=== PATIENT | male | born 1990 | race African-American/Black ===

== ENCOUNTER 2016-10-18 18:35 | Inpatient (IN) | payer OTHER ==
--- NOTE | ~2016-10-18 | HP ---
Unit #: [id number] #: [id number] Patient: ANNA JOLLY [id number] [facility] [address] [place] [address] [id number] MR#: [id number] NAME: ANNA JOLLY ROOM: [facility] Age: 26 Sex: M Admission Date: 10/18/2016 : 1990 Attending Physician: Quincy Painting M.D. Admitting Physician: Quincy Painting M.D. Primary Care Physician: Primary Care Physician No HISTORY AND PHYSICAL HISTORY OF PRESENT ILLNESS Anna is a 26 year old admitted to [address] [place] [address] with depression after verbalizing wanting to hurt himself. He has been noncompliant with psychiatric medications for quite some time. He is a poor historian and is uncooperative so his history is taken from his chart and exam is limited. PAST MEDICAL HISTORY Nothing significant. PAST SURGICAL HISTORY Nothing known. ALLERGIES No known drug allergies. SOCIAL HISTORY It is unclear if he smokes, drinks alcohol or uses illicit drugs. FAMILY HISTORY Medically not known. REVIEW OF SYSTEMS He refuses to answer any questions. There are no reports of nausea, vomiting or diarrhea. He has had no cough or increased temperature. CURRENT MEDICATIONS 1. Milk of Magnesia p.r.n. 2. Maalox p.r.n. 3. Tylenol p.r.n. 4. Nicotine patch 14 mg q day PHYSICAL EXAMINATION GENERAL: Alert, well-nourished, in no apparent distress. VITAL SIGNS: Blood pressure 104/88, heart rate 84, respirations 16, temperature 98.6. WEIGHT: 160 pounds. HEIGHT: 6'1". SKIN: Patient refuses. HEENT: Patient refuses. NECK: Patient refuses. HEART: Rate and rhythm is regular. LUNGS: Patient refuses. Unit #: [id number] #: [id number] Patient: ANNA JOLLY ABDOMEN: Patient refuses. : Patient refuses. EXTREMITIES: Moves all extremities without focal deficit. Hand pre owned sales consultant is equal. Gait is normal. NEUROLOGICAL: Patient refuses. IMPRESSION Psychiatric admission RECOMMENDATIONS PSYCHIATRIC: Per psychiatrist. MEDICAL: I see no contraindications to participating in facility's activities. MEDICAL PROGNOSIS Good. MEDICAL CONDITION Stable. Dictated by... Tracie Miller P.A.-C. for Rikki Ponce/segun TD: 10/20/2016 07:14 JOB #: [id number] HISTORY AND PHYSICAL Page 1 of 1 X Tracie Miller HISTORY AND PHYSICAL
--- NOTE | ~2016-10-18 | PA ---
Unit #: [id number] #: [id number] Patient: ANNA JOLLY [id number] [place] [address] [id number] MR#: [id number] NAME: ANNA JOLLY ROOM: [facility] Age: 26 Sex: M Admission Date: 10/18/2016 : 1990 Date of Assessment: 10/19/2016 Attending Physician: Quincy Painting M.D. Admitting Physician: Quincy Painting M.D. Primary Care Physician: Primary Care Physician No PSYCHIATRIC ASSESSMENT IDENTIFYING INFORMATION The patient is a 26-year-old single male who is admitted voicing suicidal ideation. CHIEF COMPLAINT None given INFORMANT Chart, patient could not aroused for interview. HISTORY OF PRESENT ILLNESS The patient is a 26-year-old single male who carries a diagnosis of a bipolar spectrum disorder. He was admitted after he had voiced positive suicidal ideation. He had been at [facility] but apparently eloped from that facility. Reportedly the patient has been on Seroquel and lithium in the past but has been off medications for some time. The patient is homeless and states that he has been "living in a [place]. The patient had required p.r.n. medication on admission to the hospital yesterday and is currently very groggy and cannot be aroused for interview. PAST PSYCHIATRIC HISTORY As noted previously has been diagnosed with bipolar disorder and has been prescribed Seroquel and lithium but has been noncompliant with those medications for approximately two months per report of the chart. PAST MEDICAL HISTORY Noncontributory. MEDICATIONS [place] and Seroquel ALLERGIES None reported. FAMILY HISTORY not obtained. SOCIAL HISTORY As noted previously. The patient is reportedly homeless. Further social history cannot be obtained at this time. MENTAL STATUS EXAMINATION Unit #: [id number] #: [id number] Patient: ANNA JOLLY At this time reveals the patient to be a well-developed, well-nourished and disheveled male, appearing his stated age. He is sleeping soundly and cannot be aroused for further interview. CHIEF COMPLAINT none given. INFORMANT The patient, reliability is fair. ASSETS AND LIABILITIES ASSETS: To be assessed. LIABILITIES: Lack of resources. Homelessness. DIAGNOSTIC IMPRESSION Bipolar disorder depressed phase. TREATMENT PLAN The patient remains hospitalized for safety and stabilization. Once the patient is more capable of participating in interview we will consider reinitiation of his previously prescribed medications. Suicidal precautions are in place. ESTIMATE LENGTH IN THE HOSPITAL Five to seven days with followup to take place through the auspices of community mental health resources. Dictated by... Quincy Painting M.D. JOSH/segun TD: 10/20/2016 04:45 JOB #: [id number] PSYCHIATRIC ASSESSMENT Page 1 of 1 X Quincy Painting MD X PSYCHIATRIC ASSESSMENT
--- NOTE | ~2016-10-18 | PN ---
Unit #: [id number] #: [id number] Patient: ANNA JOLLY [id number] [facility] [address] [place] [address] [id number] MR#: [id number] NAME: ANNA JOLLY ROOM: [facility] Age: 26 Sex: M Admission Date: 10/18/2016 : 1990 Attending Physician: Quincy Painting M.D. Admitting Physician: Quincy Painting M.D. Primary Care Physician: Primary Care Physician Estella MELGAR PROGRESS NOTES DATE 10/20/2016 DISCUSSION The patient is abed resting comfortably with the blanket over his head. Multiple attempts to arouse the patient are less unsuccessful. Staff reports no management issues (1) __ the patient has remained for the most part seclusive to room. Dictated by... Quincy Painting M.D. CB/jamia TD: 10/20/2016 13:14 JOB #: [id number] [facility] PROGRESS NOTES Page 1 of 1 X Quincy Painting MD PROGRESS NOTE
--- NOTE | ~2016-10-18 | DS ---
Unit #: [id number] #: [id number] Patient: ANNA JOLLY [id number] [facility] [address] [place] [address] [id number] I MR#: [id number] NAME: ANNA JOLLY ROOM: [facility] Age: 26 Sex: M Admission Date: 10/18/2016 : 1990 Discharge Date: 10/21/2016 Attending Physician: Quincy Painting M.D. DISCHARGE SUMMARY REASON FOR ADMISSION The patient is a 26-year-old male, admitted voicing suicidal ideation. HOSPITAL COURSE The patient was admitted to the [facility] and placed on suicide precautions. He was restarted on prescribed Seroquel 300 mg daily, lithium carbonate was not re-initiated, secondary to the patient's history of poor compliance and inability to ascertain his previously prescribed dose. The patient did tolerate re-initiation of that medication of Seroquel without complaint, and he remained seclusive to room with little participation within therapeutic milieu. By 10/21/2016, he requested discharge and was ordered. FINAL DIAGNOSES Bipolar disorder, most recent episode depressed. DISPOSITION ON DISCHARGE The patient is discharged on the following medications; Seroquel 300 mg at bedtime for mood stabilization and depression. DISCHARGE INSTRUCTIONS No dietary or physical restrictions were placed on the patient at the time of discharge. FOLLOWUP Follow up will take place through the auspices of community mental health resources. PROGNOSIS The patient's prognosis is considered fair. Dictated by... Quincy Painting M.D. CB/jono TD: 10/21/2016 15:16 JOB #: [id number] Unit #: [id number] #: [id number] Patient: ANNA JOLLY DISCHARGE SUMMARY Page 1 of 1 X Quincy Painting MD X DISCHARGE SUMMARY
== END 2016-10-21 14:27 | disposition home or self-care (01) | DRG 885 ==
LOC: POF 20:20 → P1S 20:20
DX: F31.9 Bipolar disorder, unspecified (principal); Z59.0 Homelessness
CPT/HCPCS: J1200; J1630; J2060